=== PATIENT | male | born 1950 | race African-American/Black ===

== ENCOUNTER 2017-03-01 06:45 | Inpatient (IN) | payer BC, OTHER ==
[2017-03-01] VITALS (15 sets, daily range): BP systolic 99–125; BP diastolic 62–82
[~2017-03-01] VITALS: Ht 190.5 cm; Wt 86.2 kg
[~2017-03-01 06:45] MED LIST: CIALIS PO; RAPAFLO8 MG ORAL
[2017-03-01] MEDS ORDERED: ProvayBlue 5mg/ml 10ml amp INJ ONE (07:00)
[2017-03-01] MEDS ORDERED: ceFAZolin sod 1 GM in NS 55 ML IVPB ONE (07:00)
[2017-03-01] MEDS ORDERED: Propofol 10mg/ml 20ml IV ONE ×4 (07:14→08:13)
[2017-03-01] MEDS ORDERED: LR 1000ml 1,000 ML IV SCH (07:25)
--- NOTE | 2017-03-01 07:52 | Pre-Procedure Note/Attestation ---
Pre-Procedure Note/Attestation Complete Prior to Procedure Planned Procedure: not applicable Procedure Narrative: Laparoscopic radical prostatectomy Indications for Procedure Pre-Operative Diagnosis: prostate cancer Attestation I attest that I discussed the nature of the procedure; its benefits; risks and complications; and alternatives (and the risks and benefits of such alternatives ), prior to the procedure, with the patient (or the patient's legal personnel representative). I attest that, if there was a reasonable possibility of needing a blood transfusion, the patient (or the patient's legal personnel representative) was given the [facility] standardized written summary, pursuant to the [place] Blood Safety Act ([place] Health and Safety Code # 1645, as amended). I attest that I re-evaluated the patient just prior to the surgery and that there has been no change in the patient's H&P, except as documented below: Vahe Mathis MD March 01, 2017 07:52
[2017-03-01] MEDS ORDERED: Glycopyrrolate 0.2mg/ml 1ml Vial ONE (07:53)
[2017-03-01] MEDS ORDERED: Nimbex 2mg/ml Inj 10ML IVP ONE ×2 (07:53→08:23)
[2017-03-01] MEDS ORDERED: Sterile Water Irrig 1000ml IRRIG ONE (07:53)
[2017-03-01] MEDS ORDERED: fentaNYL 250mcg/5ml ONE (07:53)
[2017-03-01] MEDS ORDERED: Neostigmine 1mg/ml 10ml Inj ONE (07:53)
[2017-03-01] MEDS ORDERED: Labetalol 5mg/ml 20ml vial IV ONE (07:53)
[2017-03-01] MEDS ORDERED: NS Irrig 1000ml ONE (07:53)
[2017-03-01] MEDS ORDERED: Succinylcholine 20mg/ml 10ml vial ONE (07:53)
[2017-03-01] MEDS ORDERED: Midazolam 2mg/2ml Inj ONE (07:53)
--- NOTE | 2017-03-01 07:53 | Brief Operative Note ---
Immediate Post Operative Note Operative Note Pre-op Diagnosis: prostate cancer Procedure: Laparoscopic radical prostatectomy Post-op Diagnosis: same Post-op Diagnosis: same as pre-op Surgeon: Wilfredo Mathis Railroad Engineer: Delon Garcia Anesthesia: general Specimen: yes Complications: none Condition: stable Estimated Blood Loss: minimal Implant(s) used?: No Vahe Mathis MD March 01, 2017 07:53
[2017-03-01] MEDS ORDERED: Surgicel 4in x 8in TOPIC ONE (08:32)
[2017-03-01] MEDS: Bupivacaine 0.5% Inj 30 ml vial INJ ONE ×2 (08:47→11:13)
[2017-03-01] MEDS ORDERED: LR 1000ml 1,000 ML IVLG SCH (08:48)
--- NOTE | 2017-03-01 08:48 | Anethesia Preoperative Eval ---
Anesthesia Pre-op PMH/ROS General Date of Evaluation: March 01, 2017 Time of Evaluation: 07:15 Anesthesiologist: Mariusz ASA Score: ASA 2 Mallampati Score Class I : Soft palate, uvula, fauces, pillars visible Class II: Soft palate, uvula, fauces visible Class III: Soft palate, base of uvula visible Class IV: Only hard plate visible Mallampati Classification: Class III Surgeon: Delfina Diagnosis: Prostate CA Surgical Procedure: Laparoscopic prostateectomy Anesthesia History: none Social History: current smoker Family History: no anesthesia problems Allergies: Coded Allergies: No Known Allergies (Unverified , 02/28/17) Medications: see eMAR Past Medical History Cardiovascular: Reports: arrhythmia - H/O A fib s/p ablasion stable, Denies: CAD, HTN, MT, other, valve dz Pulmonary: Denies: COPD, KWESI, asthma, other Gastrointestinal/Genitourinary: Reports: GERD, Denies: CRI, ESRD, other Neurologic/Psychiatric: Denies: CVA, TIA, dementia, depression/anxiety, other Endocrine: Denies: DM, hypothyroidism, other, steroids HEENT: Denies: [place] (L), [place] (R), cataract (L), cataract (R), glaucoma, other Hematology/Immune: Reports: anemia - mild, Denies: DVT, bleeding disorder, other Musculoskeletal/Integumentary: Denies: DDD, DJD, OA, RA, edema, other PMH Narrative: as above PSxH Narrative: lumbar spine fusion, hernia repair, knee Sx Anesthesia Pre-op Phys. Exam Physician Exam Last Vital Signs Date Time Temp Pulse Resp B/P Pulse Ox O2 Delivery O2 Flow Rate FiO2 03/01/17 07:14 97.7 60 20 123/71 100 Room Air Constitutional: NAD Neurologic: CN 2-12 intact Cardiovascular: RRR, no M/R/G Respiratory: CTA Gastrointestinal: S/NT/ND Airway Exam Mallampati Score: Class III MO: limited Neck: stiff ROM: limited Teeth: missing Dentures: no lower, no upper Anesthesia Pre-op A/P Labs see chart Studies Pre-op Studies: EKG - NSR Risk Assessment & Plan Assessment: ASA 2 Plan: GA with ETT Status Change Before Surgery: No Pre-Antibiotics Drug: Ancef 2gr. Given Within 1 Hr of Incision: Yes Time Given: 07:56 JACLYN LARIOS M.D. March 01, 2017 08:48
[2017-03-01] MEDS ORDERED: DiphenhydrAMINE 50mg/ml Inj IVP PRN (09:00)
[2017-03-01] MEDS ORDERED: Midazolam 2mg/2ml Inj IVP PRN (09:00)
[2017-03-01] MEDS ORDERED: Meperidine 25mg/0.5ml Inj IV PRN (09:00)
[2017-03-01 10:10] LABS: BASOPHILS % (AUTO) 0.3 % (0.0-2.0); EOSINOPHILS % (AUTO) 0.2 % (0.0-3.0); MEAN CORPUSCULAR HEMOGLOBIN 22.8 PG (27.0-31.0); MEAN CORPUSCULAR HGB CONC 29.3 G/DL (32.0-36.0); MEAN CORPUSCULAR VOLUME 78 FL (80-99); MONOCYTES % (AUTO) 7.4 % (1.0-10.0); NEUTROPHILS % (AUTO) 69.1 % (45.0-75.0); PLATELET COUNT 166 K/UL (150-450); RED BLOOD COUNT 4.85 M/UL (4.70-6.10); RED CELL DISTRIBUTION WIDTH 16.3 % (11.6-14.8); WHITE BLOOD COUNT 8.7 K/UL (4.8-10.8)
[2017-03-01] MEDS ORDERED: Acetaminophen (Non formulary) 100 ML IV ONE (11:15)
[2017-03-01 11:31] LABS: BASOPHILS % (AUTO) 0.3 % (0.0-2.0); LYMPHOCYTES % (AUTO) 12.1 % (20.0-45.0); MEAN CORPUSCULAR HEMOGLOBIN 22.9 PG (27.0-31.0); MEAN CORPUSCULAR HGB CONC 29.5 G/DL (32.0-36.0); MEAN CORPUSCULAR VOLUME 78 FL (80-99); MEAN PLATELET VOLUME 6.7 FL (6.5-10.1); MONOCYTES % (AUTO) 4.7 % (1.0-10.0); NEUTROPHILS % (AUTO) 82.9 % (45.0-75.0); PLATELET COUNT 161 K/UL (150-450); RED BLOOD COUNT 4.37 M/UL (4.70-6.10); RED CELL DISTRIBUTION WIDTH 16.2 % (11.6-14.8); WHITE BLOOD COUNT 9.4 K/UL (4.8-10.8)
--- NOTE | 2017-03-01 11:53 | Immediate Post-Op Evaluation ---
Immediate Post-Op Evalulation Immediate Post-Op Evalulation Procedure: laparoscopic prostateectomy Date of Evaluation: March 01, 2017 Time of Evaluation: 11:51 IV Fluids: 3200 Blood Products: Albumin 250 Estimated Blood Loss: 1000 Urinary Output: N/A Blood Pressure Systolic: 115 Blood Pressure Diastolic: 65 Pulse Rate: 76 Respiratory Rate: 20 O2 Sat by Pulse Oximetry: 99 Temperature (Fahrenheit): 97.4 Pain Score (1-10): 2 Nausea: No Vomiting: No Complications none Patient Status: awake, patent, extubated, none Hydration Status: adequate JACLYN LARIOS M.D. March 01, 2017 11:53
[2017-03-01] MEDS: Hydromorphone 0.5mg/0.5ml inj IVP PRN ×2 (12:12→13:07)
[2017-03-01 12:42] LABS: ANION GAP 12 (5-15); CALCIUM 8.3 mg/dL (8.6-10.2); CARBON DIOXIDE 24 mEQ/L (20-30); CHLORIDE 106 mEQ/L (98-107); CREATININE 0.9 mg/dL (0.7-1.2); GLOMERULAR FILTRATION RATE > 60 mL/min (>60); HEMOLYSIS 1; POTASSIUM 4.6 mEQ/L (3.4-4.9); SODIUM 142 mEQ/L (135-145)
[2017-03-01 13:24] LABS: BASOPHILS % (AUTO) 0.2 % (0.0-2.0); LYMPHOCYTES % (AUTO) 11.7 % (20.0-45.0); MEAN CORPUSCULAR HGB CONC 29.4 G/DL (32.0-36.0); MEAN CORPUSCULAR VOLUME 78 FL (80-99); MEAN PLATELET VOLUME 6.7 FL (6.5-10.1); MONOCYTES % (AUTO) 5.3 % (1.0-10.0); NEUTROPHILS % (AUTO) 82.8 % (45.0-75.0); PLATELET COUNT 145 K/UL (150-450); RED BLOOD COUNT 4.13 M/UL (4.70-6.10); RED CELL DISTRIBUTION WIDTH 16.1 % (11.6-14.8); WHITE BLOOD COUNT 9.3 K/UL (4.8-10.8)
[2017-03-01] MEDS ORDERED: ceFAZolin sod 2 GM in D5W 110 ML IV SCH (15:30)
[2017-03-01] MEDS: ceFAZolin sod 2 GM in D5W 110 ML IVPB SCH ×2 (15:56→23:27)
[2017-03-01] MEDS: HYDROmorphone 1mg/ml Carpuject IVP PRN ×2 (15:59→20:16)
[2017-03-01] MEDS: D5 1/2NS w/KCl 20mEq 1,000 ML IV SCH (16:03)
[2017-03-01] MEDS: Docusate 100mg cap ORAL SCH (18:33)
[2017-03-01 19:57] LABS: BASOPHILS % (AUTO) 0.5 % (0.0-2.0); EOSINOPHILS % (AUTO) 0.1 % (0.0-3.0); LYMPHOCYTES % (AUTO) 20.5 % (20.0-45.0); MEAN CORPUSCULAR HEMOGLOBIN 24.3 PG (27.0-31.0); MEAN CORPUSCULAR HGB CONC 30.9 G/DL (32.0-36.0); MEAN CORPUSCULAR VOLUME 79 FL (80-99); MONOCYTES % (AUTO) 9.9 % (1.0-10.0); PLATELET COUNT 124 K/UL (150-450); RED BLOOD COUNT 3.73 M/UL (4.70-6.10); WHITE BLOOD COUNT 7.2 K/UL (4.8-10.8)
--- NOTE | 2017-03-01 22:08 | History and Physical ---
History of Present Illness General Date patient seen: March 01, 2017 Reason for Hospitalization: Laparoscopic radical prostatectomy Present Illness HPI 56 year old male with history of prostate cancer admitted for Laparoscopic radical prostatectomy. Pt underwent surgery today and admitted to medical floor for post op care. Allergies: Coded Allergies: No Known Allergies (Unverified , 02/28/17) Medication History Scheduled Silodosin (Rapaflo), 8 MG ORAL DAILY, (Reported) [Cialis], 1 TAB-CAP PO PRN, (Reported) Patient History Healthcare decision maker N Resuscitation status Full Code Advanced Directive on File IN [facility] Past Medical/Surgical History Past Medical/Surgical History: (1) Prostate cancer Review of Systems All Other Systems: negative except mentioned in HPI Physical Exam General Appearance: WD/WN, no apparent distress HEENT: normocephalic, atraumatic Neck: non-tender, normal alignment Respiratory/Chest: chest wall non-tender, lungs clear Cardiovascular/Chest: normal peripheral pulses, normal rate Abdomen: normal bowel sounds, non tender Genitourinary/Rectal: normal genital exam Last 24 Hour Vital Signs Date Time Temp Pulse Resp B/P Pulse Ox O2 Delivery O2 Flow Rate FiO2 03/01/17 17:05 98.2 81 18 99/62 98 Room Air 03/01/17 16:29 97.9 03/01/17 15:05 97.0 79 20 104/63 98 Nasal Cannula 2.0 03/01/17 14:04 97.9 88 18 109/63 100 Nasal Cannula 2.0 03/01/17 13:24 98.6 81 17 107/62 100 Nasal Cannula 3.0 03/01/17 13:12 98.6 77 17 106/67 100 Nasal Cannula 3.0 03/01/17 13:07 75 17 110/70 100 Nasal Cannula 3.0 03/01/17 13:03 97.8 03/01/17 13:03 97.8 03/01/17 12:40 74 17 111/69 100 Nasal Cannula 3.0 03/01/17 12:25 79 15 110/72 100 Nasal Cannula 3.0 03/01/17 12:10 76 16 120/75 100 Nasal Cannula 3.0 03/01/17 11:55 80 20 125/81 100 Simple Mask 8.0 03/01/17 11:53 76 20 99 03/01/17 11:52 80 20 115/75 100 Simple Mask 8.0 03/01/17 11:47 82 20 115/76 100 Simple Mask 8.0 03/01/17 11:42 97.8 85 20 117/82 100 Simple Mask 8.0 03/01/17 07:14 97.7 60 20 123/71 100 Room Air Laboratory Tests Test 03/01/17 10:00 03/01/17 11:25 03/01/17 12:20 03/01/17 19:30 White Blood Count 8.7 K/UL (4.8-10.8) 9.4 K/UL (4.8-10.8) 9.3 K/UL (4.8-10.8) 7.2 K/UL (4.8-10.8) Red Blood Count 4.85 M/UL (4.70-6.10) 4.37 M/UL (4.70-6.10) L 4.13 M/UL (4.70-6.10) L 3.73 M/UL (4.70-6.10) L Hemoglobin 11.1 G/DL (14.2-18.0) L 10.0 G/DL (14.2-18.0) L 9.5 G/DL (14.2-18.0) L 9.1 G/DL (14.2-18.0) L Hematocrit 37.8 % (42.0-52.0) L 33.9 % (42.0-52.0) L 32.3 % (42.0-52.0) L 29.3 % (42.0-52.0) L Mean Corpuscular Volume 78 FL (80-99) L 78 FL (80-99) L 78 FL (80-99) L 79 FL (80-99) L Mean Corpuscular Hemoglobin 22.8 PG (27.0-31.0) L 22.9 PG (27.0-31.0) L 23.0 PG (27.0-31.0) L 24.3 PG (27.0-31.0) L Mean Corpuscular Hemoglobin Concent 29.3 G/DL (32.0-36.0) L 29.5 G/DL (32.0-36.0) L 29.4 G/DL (32.0-36.0) L 30.9 G/DL (32.0-36.0) L Red Cell Distribution Width 16.3 % (11.6-14.8) H 16.2 % (11.6-14.8) H 16.1 % (11.6-14.8) H 16.0 % (11.6-14.8) H Platelet Count 166 K/UL (150-450) 161 K/UL (150-450) 145 K/UL (150-450) L 124 K/UL (150-450) L Mean Platelet Volume 7.0 FL (6.5-10.1) 6.7 FL (6.5-10.1) 6.7 FL (6.5-10.1) 8.0 FL (6.5-10.1) Neutrophils (%) (Auto) 69.1 % (45.0-75.0) 82.9 % (45.0-75.0) H 82.8 % (45.0-75.0) H 69.0 % (45.0-75.0) Lymphocytes (%) (Auto) 23.0 % (20.0-45.0) 12.1 % (20.0-45.0) L 11.7 % (20.0-45.0) L 20.5 % (20.0-45.0) Monocytes (%) (Auto) 7.4 % (1.0-10.0) 4.7 % (1.0-10.0) 5.3 % (1.0-10.0) 9.9 % (1.0-10.0) Eosinophils (%) (Auto) 0.2 % (0.0-3.0) 0.0 % (0.0-3.0) 0.0 % (0.0-3.0) 0.1 % (0.0-3.0) Basophils (%) (Auto) 0.3 % (0.0-2.0) 0.3 % (0.0-2.0) 0.2 % (0.0-2.0) 0.5 % (0.0-2.0) Sodium Level 142 mEQ/L (135-145) Potassium Level 4.6 mEQ/L (3.4-4.9) Chloride Level 106 mEQ/L (98-107) Carbon Dioxide Level 24 mEQ/L (20-30) Anion Gap 12 (5-15) Blood Urea Nitrogen 8 mg/dL (7-23) Creatinine 0.9 mg/dL (0.7-1.2) Estimat Glomerular Filtration Rate > 60 mL/min (>60) Glucose Level 122 mg/dL (74-106) H Calcium Level 8.3 mg/dL (8.6-10.2) L Height (Feet): 6 Height (Inches): 3.00 Weight (Pounds): 190 Medications Current Medications Medications (Trade) Dose Ordered Sig/[place] Route PRN Reason Start Time Stop Time Status Last Admin Dose Admin Acetaminophen (Tylenol) 650 mg Q6H PRN ORAL Mild Pain (Pain Scale 1-3) 03/01/17 08:00 03/31/17 07:59 03/01/17 20:17 Acetaminophen 650 mg 650 mg Q4H PRN ORAL FEVER 03/01/17 08:00 03/31/17 07:59 Acetaminophen/ Hydrocodone Bitart ([place] 5/325) 1 tab Q4H PRN ORAL Moderate Pain (Pain Scale 4-6) 03/01/17 08:00 03/08/17 07:59 Cefazolin Sodium/ Dextrose (Ancef/D5W) 110 ml @ 220 mls/hr Q8H IVPB 03/01/17 16:30 03/02/17 00:59 03/01/17 15:56 Dextrose/ Electrolytes (D5 0.45%NS W/ KCl 20mEq) 1,000 ml @ 100 mls/hr Q10H IV 03/01/17 15:00 03/31/17 14:59 03/01/17 16:03 Docusate Sodium (Colace) 100 mg TWICE A DAY ORAL 03/01/17 18:00 03/31/17 17:59 03/01/17 18:33 Hydromorphone HCl (Dilaudid) 1 mg Q3H PRN IVP Severe Pain (Pain Scale 7-10) 03/01/17 08:00 03/08/17 07:59 03/01/17 20:16 Ondansetron HCl (Zofran) 4 mg Q6H PRN IVP Nausea & Vomiting 03/01/17 08:00 6/16/17 07:59 Temazepam (Restoril) 7.5 mg DAILYPRN PRN ORAL Insomnia 03/01/17 08:00 03/08/17 07:59 Assessment/Plan Problem List: (1) Prostate cancer ICD Codes: C61 - Malignant neoplasm of prostate SNOMED: [id number] (2) Laparoscopic radical prostatectomy Assessment/Plan pain control post op care advance diet as tolerated DEJA NINO March 01, 2017 22:08
[2017-03-02] VITALS: BP 104/62
[2017-03-02] MEDS: D5 1/2NS w/KCl 20mEq 1,000 ML IV SCH ×2 (01:41→10:51)
[2017-03-02] MEDS: HYDROmorphone 1mg/ml Carpuject IVP PRN (02:25)
[2017-03-02 04:00] VITALS: BP 101/58
[2017-03-02 05:42] LABS: INR 1.1 (0.9-1.1)
[2017-03-02 05:44] LABS: MEAN CORPUSCULAR HEMOGLOBIN 23.6 PG (27.0-31.0); MEAN CORPUSCULAR HGB CONC 30.3 G/DL (32.0-36.0); MEAN CORPUSCULAR VOLUME 78 FL (80-99); MEAN PLATELET VOLUME 7.3 FL (6.5-10.1); PLATELET COUNT 137 K/UL (150-450); RED BLOOD COUNT 3.63 M/UL (4.70-6.10); WHITE BLOOD COUNT 5.3 K/UL (4.8-10.8)
[2017-03-02 05:51] LABS: ANION GAP 11 (5-15); CALCIUM 8.3 mg/dL (8.6-10.2); CARBON DIOXIDE 26 mEQ/L (20-30); CHLORIDE 101 mEQ/L (98-107); CREATININE 0.9 mg/dL (0.7-1.2); GLOMERULAR FILTRATION RATE > 60 mL/min (>60); HEMOLYSIS 1; POTASSIUM 3.9 mEQ/L (3.4-4.9); SODIUM 138 mEQ/L (135-145)
[2017-03-02 05:52] LABS: LACTATE DEHYDROGENASE 129 U/L (135-230)
[2017-03-02 06:10] LABS: HEMOLYSIS 4; IRON 97 ug/dL (59-158); TOTAL IRON BINDING CAPACITY 194 ug/dL (250-400)
--- NOTE | 2017-03-02 07:42 | 48 Hour Post Anesthesia Eval ---
Post Anesthesia Evaluation Procedure: laparoscopic prostateectomy Date of Evaluation: March 02, 2017 Time of Evaluation: 07:41 Blood Pressure Systolic: 104 0: 58 Pulse Rate: 72 Respiratory Rate: 20 Temperature (Fahrenheit): 97.6 O2 Sat by Pulse Oximetry: 98 Airway: patent Nausea: No Vomiting: No Pain Intensity: 3 Hydration Status: adequate Cardiopulmonary Status: stable Mental Status/LOC: patient returned to baseline Follow-up Care/Observations: n/a Post-Anesthesia Complications: none Follow-up care needed: N/A JACLYN LARIOS M.D. March 02, 2017 07:42
[2017-03-02] MEDS: Norco 5mg/325mg tab ORAL PRN ×2 (07:43→15:24)
[2017-03-02 08:00] VITALS: BP 100/55
[2017-03-02] MEDS: Docusate 100mg cap ORAL SCH ×2 (08:41→17:21)
[2017-03-02] MEDS ORDERED: Neosporin Oint Ud Pkt TOPIC ONE (10:30)
[2017-03-02 10:41] LABS: RETICULOCYTE COUNT 0.9 % (0.0-2.0)
[2017-03-02 12:00] VITALS: BP 115/65
[2017-03-02 12:10] LABS: ANISOCYTOSIS 1+; BAND NEUTROPHILS % (MANUAL) 0 % (0-8); BASOPHILS % (MANUAL) 0 % (0-2); EOSINOPHILS % (MANUAL) 0 % (0-3); HYPOCHROMASIA 2+; LYMPHOCYTES % (MANUAL) 24 % (20-45); NEUTROPHILS % (MANUAL) 70 % (45-75); PLATELET ESTIMATE DECREASED; PLATELET MORPHOLOGY NORMAL; TOTAL CELLS COUNTED 100
[2017-03-02 12:11] LABS: MICROCYTES 1+
[2017-03-02 12:37] LABS: PATH BLOOD SMEAR/OMC SENT TO PATHOLOGIST
[2017-03-02 14:22] LABS: BASOPHILS % (AUTO) 0.4 % (0.0-2.0); EOSINOPHILS % (AUTO) 0.5 % (0.0-3.0); LYMPHOCYTES % (AUTO) 16.1 % (20.0-45.0); MEAN CORPUSCULAR HEMOGLOBIN 23.2 PG (27.0-31.0); MEAN CORPUSCULAR HGB CONC 29.7 G/DL (32.0-36.0); MEAN CORPUSCULAR VOLUME 78 FL (80-99); MEAN PLATELET VOLUME 6.3 FL (6.5-10.1); MONOCYTES % (AUTO) 9.4 % (1.0-10.0); NEUTROPHILS % (AUTO) 73.7 % (45.0-75.0); PLATELET COUNT 131 K/UL (150-450); RED BLOOD COUNT 3.75 M/UL (4.70-6.10); RED CELL DISTRIBUTION WIDTH 16.6 % (11.6-14.8); WHITE BLOOD COUNT 6.8 K/UL (4.8-10.8)
--- NOTE | 2017-03-02 14:47 | Pulmonology Progress Note ---
Assessment/Plan Problems: (1) Prostate cancer (2) Laparoscopic radical prostatectomy Assessment/Plan pain control postop care advance diet anemia w/u Subjective ROS Limited/Unobtainable: No Interval Events: comfortable, shoulder pain Allergies: Coded Allergies: No Known Allergies (Unverified , 02/28/17) Objective Last 24 Hour Vital Signs Date Time Temp Pulse Resp B/P Pulse Ox O2 Delivery O2 Flow Rate FiO2 03/02/17 12:00 98.4 76 19 115/65 99 Room Air 03/02/17 08:00 99.1 79 18 100/55 Room Air 03/02/17 07:42 72 20 98 03/02/17 04:00 99.3 80 18 101/58 98 Room Air 03/02/17 00:00 99.1 69 18 104/62 98 Room Air 03/01/17 20:00 97.7 64 18 104/64 98 Room Air 03/01/17 17:05 98.2 81 18 99/62 98 Room Air 03/01/17 16:29 97.9 03/01/17 15:05 97.0 79 20 104/63 98 Nasal Cannula 2.0 Intake and Output 03/01/17 03/02/17 19:00 07:00 Intake Total 4560 ml 1060 ml Output Total 1690 ml 940 ml Balance 2870 ml 120 ml Intake Oral 360 ml IV Total 4310 ml 700 ml Other 250 ml Output Urine Total 450 ml 900 ml Drainage Total 240 ml 40 ml Estimated Blood Loss 1000 ml General Appearance: WD/WN HEENT: normocephalic, atraumatic Respiratory/Chest: chest wall non-tender, lungs clear Cardiovascular: normal peripheral pulses, normal rate Abdomen: normal bowel sounds, soft, non tender Genitourinary: normal external genitalia Extremities: no cyanosis 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, no motor/sensory deficits Laboratory Tests 03/01/17 19:30: White Blood Count 7.2, Red Blood Count 3.73L, Hemoglobin 9.1L, Hematocrit 29.3L , Mean Corpuscular Volume 79L, Mean Corpuscular Hemoglobin 24.3L, Mean Corpuscular Hemoglobin Concent 30.9L, Red Cell Distribution Width 16.0H, Platelet Count 124L, Mean Platelet Volume 8.0, Neutrophils (%) (Auto) 69.0, Lymphocytes (%) (Auto) 20.5, Monocytes (%) (Auto) 9.9, Eosinophils (%) (Auto) 0.1, Basophils (%) (Auto) 0.5 03/02/17 05:00: White Blood Count 5.3, Red Blood Count 3.63L, Hemoglobin 8.6L, Hematocrit 28.3L , Mean Corpuscular Volume 78L, Mean Corpuscular Hemoglobin 23.6L, Mean Corpuscular Hemoglobin Concent 30.3L, Red Cell Distribution Width 16.0H, Platelet Count 137L, Mean Platelet Volume 7.3, Neutrophils (%) (Auto) , Lymphocytes (%) (Auto) , Monocytes (%) (Auto) , Eosinophils (%) (Auto) , Basophils (%) (Auto) , Differential Total Cells Counted 100, Neutrophils % ( Manual) 70, Lymphocytes % (Manual) 24, Monocytes % (Manual) 6, Eosinophils % ( Manual) 0, Basophils % (Manual) 0, Band Neutrophils 0, Platelet Estimate DecreasedL, Platelet Morphology Normal, Hypochromasia 2+, Anisocytosis 1+, Microcytosis 1+, Erythrocyte Sedimentation Rate 10, Reticulocyte Count 0.9, Prothrombin Time 11.0, Prothromb Time International Ratio 1.1, Activated Partial Thromboplast Time 29, Sodium Level 138, Potassium Level 3.9, Chloride Level 101, Carbon Dioxide Level 26, Anion Gap 11, Blood Urea Nitrogen 8, Creatinine 0.9, Estimat Glomerular Filtration Rate > 60, Glucose Level 117H, Calcium Level 8.3L, Iron Level 97, Total Iron Binding Capacity 194L, Percent Iron Saturation 50, Unsaturated Iron Binding 97L, Lactate Dehydrogenase 129L, Carcinoembryonic Antigen 1.3, Vitamin B12 Level 651, Folate [Pending] 03/02/17 14:00: White Blood Count 6.8, Red Blood Count 3.75L, Hemoglobin 8.7L, Hematocrit 29.2L , Mean Corpuscular Volume 78L, Mean Corpuscular Hemoglobin 23.2L, Mean Corpuscular Hemoglobin Concent 29.7L, Red Cell Distribution Width 16.6H, Platelet Count 131L, Mean Platelet Volume 6.3L, Neutrophils (%) (Auto) 73.7, Lymphocytes (%) (Auto) 16.1L, Monocytes (%) (Auto) 9.4, Eosinophils (%) (Auto) 0.5, Basophils (%) (Auto) 0.4 Current Medications Medications (Trade) Dose Ordered Sig/[place] Route PRN Reason Start Time Stop Time Status Last Admin Dose Admin Acetaminophen (Tylenol) 650 mg Q4H PRN ORAL FEVER 03/01/17 08:00 03/31/17 07:59 Acetaminophen (Tylenol) 650 mg Q6H PRN ORAL Mild Pain (Pain Scale 1-3) 03/01/17 08:00 03/31/17 07:59 03/01/17 20:17 Acetaminophen/ Hydrocodone Bitart ([place] 5/325) 1 tab Q4H PRN ORAL Moderate Pain (Pain Scale 4-6) 03/01/17 08:00 03/08/17 07:59 03/02/17 07:43 Dextrose/ Electrolytes (D5 0.45%NS W/ KCl 20mEq) 1,000 ml @ 100 mls/hr Q10H IV 03/01/17 15:00 03/31/17 14:59 03/02/17 10:51 Docusate Sodium (Colace) 100 mg TWICE A DAY ORAL 03/01/17 18:00 03/31/17 17:59 03/02/17 08:41 Hydromorphone HCl (Dilaudid) 1 mg Q3H PRN IVP Severe Pain (Pain Scale 7-10) 03/01/17 08:00 03/08/17 07:59 03/02/17 02:25 Ondansetron HCl (Zofran) 4 mg Q6H PRN IVP Nausea & Vomiting 03/01/17 08:00 03/31/17 07:59 Temazepam (Restoril) 7.5 mg DAILYPRN PRN ORAL Insomnia 03/01/17 08:00 03/08/17 07:59 03/01/17 23:28 DEJA NINO March 02, 2017 14:47
[2017-03-02 16:00] VITALS: BP 132/71
[2017-03-02] MEDS ORDERED: Milk of Magnesia 30ml Ud ORAL ONE (17:00)
[2017-03-02] MEDS ORDERED: LEVOFLOXACIN250 MG ORAL (17:20)
[2017-03-02] MEDS ORDERED: COLACE100 MG ORAL (17:20)
[2017-03-02] MEDS ORDERED: ACETAMINOPHEN-1 EAC1 ORAL (17:21)
[2017-03-02] MEDS ORDERED: NS 550ML IV ONE (18:14)
[2017-03-02] MEDS ORDERED: Tubing IV Secondary IV ONE (18:14)
--- NOTE | 2017-03-03 11:11 | Discharge Summary ---
Discharge Summary Hospital Course Date of Admission March 01, 2017 at 06:45 Date of Discharge March 02, 2017 at 18:15 Admitting Diagnosis RADHA Fairchild is a 66 year old male who was admitted on March 01, 2017 at 06:45 for Prostate Cancer Hospital Course [id number] Discharge Discharge Disposition Patient was discharged to Home with Discharge Diagnoses: Gudelia Arizmendi NP March 03, 2017 11:11
--- NOTE | 2017-03-03 22:16 | Discharge Summary 2 SIG ---
DATE OF ADMISSION: 03/01/2017 DATE OF DISCHARGE: 03/02/2017 SURGEON: Vahe Mathis M.D. BRIEF HOSPITAL COURSE: The patient is a 66-year-old male with a history of prostate CA, was admitted for laparoscopic radical prostatectomy. The patient underwent surgery and was admitted to medical floor for postop care. He was given pain management and incentive spirometry and was encouraged to ambulate out of bed. He underwent physical therapy and occupational therapy. Anemia workup done showed normal iron stores. Peripheral blood smear showed microcytic hypochromic moderate anemia. José catheter was removed and the patient was eventually discharged home to follow up as outpatient. FINAL DIAGNOSES: 1. Prostatic cancer. 2. Status post laparoscopic radical prostatectomy. 3. Anemia. Jose Arango M.D. I have been assigned to dictate discharge summary on this account and I was not involved in the patient's management. Gudelia Arizmendi N.P. DR: DONYA JOB#: [id number] CC: TIRSO
--- NOTE | 2017-03-06 23:30 | Operative Note - Dictated ---
DATE OF OPERATION: 03/01/2017 PREOPERATIVE DIAGNOSIS: Prostate cancer. POSTOPERATIVE DIAGNOSIS: Prostate cancer. OPERATION: Laparoscopic radical retropubic prostatectomy. SURGEON: Vahe Mathis M.D. REGIONAL VICE PRESIDENT SURGICAL SALES: Delon Garcia M.D. FINDINGS: Enlarged prostate. INDICATIONS FOR SURGERY: The patient had PSA of 10 and prostate needle biopsy showed Micki 7 multifocal prostate cancer. The patient underwent bone scan and CT scan which showed no evidence of extra prostatic involvement. Treatment options were explained to him in great length during several sessions and included surgery versus radiation therapy, cryotherapy, hormonal, just watchful waiting, etc. After several discussions, the patient understands and elected to have laparoscopically-assisted radical prostatectomy. All potential complications such as erectile dysfunction, postoperative urinary incontinence, nerve preservation, and general complications such as retention, urinary tract infection, bleeding, rectal perforation, CO, PE, and were discussed. He signed a consent. DESCRIPTION OF PROCEDURE: He was brought to the operating room and placed in the supine position, and prepped and draped in standard fashion. Five trocars were placed after pneumoperitoneum was created with Veress needle to 15 mmHg. dissection started behind the bladder mobilizing seminal vesicles and vas deferens. Vas deferens that was severed with electrocautery and then Denonvilliers fascia was opened rectum from the prostate. After that dissection was carried anteriorly bladder from the pubis. Endopelvic fascia was opened with electric scissors. Dorsal venous complex was transected with Endo-MONIKA and both sides of the prostate was clearly mobilized. Lateral fascia was opened and both neurovascular bundles were pushed out from the prostate. There was some resistance on the left side with somewhat adherence of the lateral fascia to the prostate but we were able to accomplish at least partial nerve sparing on the left side and complete nerve sparing on the right. After that bladder neck sparing technique was used to separate the bladder from the prostate. Bladder neck was transected and prostate was removed in its entirety and sent for pathologic examination. After that using 20-Beng[place] José catheter, bladder neck was anastomosed to the urethra using running 2-0 Monocryl anastomosis. It was water tested with irrigation. There was no evidence of leak. ENRRIQUE drain was placed into the prostatic fossa. Estimated blood loss was approximately 500 mL. Abdomen was then carefully inspected and there was no evidence of retained sponges or any other foreign bodies. There was no evidence of bleeding. Wound was closed in sequential layers, subcuticular closure for the skin. The patient tolerated the procedure well. Sponge count and instrument count were correct. Vahe Mathis M.D. DR: Inder JOB#: [id number] CC:
== END 2017-03-02 18:15 | disposition home or self-care (01) | DRG 708 ==
LOC: SDSOVERFLO 06:45 → 3E 13:37
PROC: 0VT04ZZ Resection of Prostate, Percutaneous Endoscopic Approach (ICD-10-PCS; principal; 2017-03-01 07:30)
DX: C61 Malignant neoplasm of prostate (principal); D64.9 Anemia, unspecified; M51.9 Unspecified thoracic, thoracolumbar and lumbosacral intervertebral disc disorder
CPT/HCPCS: 36415; 80048; 82378; 82607; 82746; 83540; 83550; 83615; 85007; 85025; 85044; 85060; 85610; 85651; 85730; 86850; 86900; 86901; 86920; 87081; 94003; 94150; J2180; J2250; J2405; J2710